=== PATIENT | male | born 1960 | race Caucasian/White ===

== ENCOUNTER → 2022-12-09 | Outpatient (CLI) | payer BC | LOC: M PLAIMG 07:36 | PROVIDERS: ATTEND Orthopaedic Surgery | DX: M54.12 Radiculopathy, cervical region (principal) ==

== ENCOUNTER → 2023-07-28 | Outpatient (CLI) | payer BC | LOC: M SOG 08:11 | PROVIDERS: ATTEND Orthopaedic Surgery | DX: M50.921 Unspecified cervical disc disorder at C4-C5 level (principal); M50.922 Unspecified cervical disc disorder at C5-C6 level ==

== ENCOUNTER 2024-02-19 02:50 | Emergency (ER) | payer BC ==
[~2024-02-19] VITALS: Ht 175.3 cm; Wt 100.0 kg
[2024-02-19] MEDS: ACETAMINOPHEN TAB 650MG DOSE (2X325MG) PO ONE (06:08)
[2024-02-19] MEDS: LIDOCAINE 5% (LIDODERM) PATCH TD ONE (08:00)
[2024-02-19 09:58] VITALS: BP 120/72; TEMP 98; O2SAT 97
== END 2024-02-19 10:00 | disposition home or self-care (01) ==
LOC: EDBD 02:50 → M ED 02:50
DX: S20.212A Contusion of left front wall of thorax, initial encounter (principal); W01.0XXA Fall on same level from slipping, tripping and stumbling without subsequent striking against object, initial encounter; Y92.89 Other specified places as the place of occurrence of the external cause; Y93.9 Activity, unspecified; Y99.9 Unspecified external cause status; I10 Essential (primary) hypertension; J44.9 Chronic obstructive pulmonary disease, unspecified; R56.9 Unspecified convulsions; Z95.5 Presence of coronary angioplasty implant and graft; Z88.0 Allergy status to penicillin

== ENCOUNTER → 2024-03-06 | Outpatient (REF) | payer BC | LOC: M SFHCDERM 12:45 | PROVIDERS: ATTEND Physician Assistant | DX: C44.309 Unspecified malignant neoplasm of skin of other parts of face (principal) ==

== ENCOUNTER 2024-12-03 06:29 | Day surgery (SDC) | payer BC ==
[~2024-12-03] VITALS: Ht 175.3 cm; Wt 107.2 kg
[~2024-12-03 06:29] MED LIST: ANOR1AER INH; APAP325T4 PO; ASPI81TA26 PO; BUSP10TA PO; CETI10CH PO; EZET10TA21 PO; FERR325T3 PO; FLON1SPR; GABA-1172 PO; LISI5TAB11 PO; METO1TAB32 PO; PANT40TA29 PO; PARO40TA2 PO; RA M500C PO; ROPI1TAB73 PO; ROSU40TA81 PO
[2024-12-03] MEDS ORDERED: LR 1,000 ML IV SCH ×2 (07:30→10:10)
[2024-12-03] MEDS ORDERED: ceFAZolin SOD 2 GM IV ONCE IV ONE (08:40)
[2024-12-03] MEDS: CEFAZOLIN SOD IV ONE (09:10)
[2024-12-03] MEDS: DILUENT IV ONE (09:10)
[2024-12-03] MEDS: ceFAZolin 2 GM/D5W 50 ML IV BAG As Ordered ONE (09:20)
[2024-12-03] MEDS: BACITRACIN OINTMENT 30GM TUBE As Ordered ONE (09:35)
[2024-12-03] MEDS ORDERED: MIDAZOLAM INJ 2MG/2ML VIAL As Ordered ONE (09:57)
[2024-12-03] MEDS ORDERED: fentaNYL 100 MCG/2 ML INJECTION As Ordered ONE (09:57)
[2024-12-03] MEDS ORDERED: LIDOCAINE 2% 100MG/5ML SDV (FOR ANES.) As Ordered ONE (09:57)
[2024-12-03] MEDS ORDERED: ePHEDrine SULFATE 25 MG/5 ML(5MG/ML) SYRINGE As Ordered ONE (09:57)
[2024-12-03] MEDS ORDERED: ONDANSETRON 4MG 2ML VIAL As Ordered ONE (09:57)
[2024-12-03] MEDS ORDERED: propofoL 200 MG/20 ML VIAL As Ordered ONE (09:57)
[2024-12-03] MEDS ORDERED: ONDANSETRON 4MG 2ML VIAL IV PRN (10:10)
[2024-12-03] MEDS ORDERED: HYDROMORPHONE HCL 0.5 MG/ 0.5 ML SYRINGE IV PRN (10:10)
[2024-12-03] MEDS ORDERED: fentaNYL 100 MCG/2 ML INJECTION IV PRN (10:10)
[2024-12-03] MEDS ORDERED: oxyCODONE 5MG TAB PO PRN (10:10)
[2024-12-03] MEDS ORDERED: hydrALAZINE 20MG/ML 1ML VIAL As Ordered ONE (10:28)
[2024-12-03] MEDS: hydrALAZINE 20MG/ML 1ML VIAL IV PRN (10:30)
[2024-12-03] MEDS: ALBUTEROL SULFATE 2.5MG/0.5ML INH NEB SOLN INH ONE (10:40)
[2024-12-03 11:30] VITALS: BP 146/72; TEMP 96.9; O2SAT 96
== END 2024-12-03 11:46 | disposition home or self-care (01) ==
LOC: M SDC 06:29
PROVIDERS: ATTEND Orthopaedic Surgery Hand Surgery
DX: G56.01 Carpal tunnel syndrome, right upper limb (principal); G56.21 Lesion of ulnar nerve, right upper limb; E11.9 Type 2 diabetes mellitus without complications; G47.9 Sleep disorder, unspecified; Z88.1 Allergy status to other antibiotic agents; Z88.8 Allergy status to other drugs, medicaments and biological substances; Z88.0 Allergy status to penicillin; Z88.2 Allergy status to sulfonamides; F17.220 Nicotine dependence, chewing tobacco, uncomplicated; Z79.899 Other long term (current) drug therapy
CPT/HCPCS: 26055; 64721; 64999; 88302; C1762; J0360; J0665; J0690; J1100; J2250; J2405; J3010